=== PATIENT | male | born 1980 | race African-American/Black ===

== ENCOUNTER 2024-06-13 12:23 | Emergency (ER) | payer SELFPAY ==
[~2024-06-13] VITALS: Ht 190.5 cm; Wt 83.0 kg
[2024-06-13 12:24] VITALS: O2SAT 96
[2024-06-13 12:50] VITALS: BP 140/78; PULSE 64; RESP 16; TEMP 36.6; O2SAT 96
[2024-06-13] MEDS: SODIUM CHLORIDE 0.9% 1,000 ML IV ONE (13:15)
[2024-06-13] MEDS: LEVETIRACETAM 500MG PREMIX 100 ML IV ONE ×2 (13:15)
[2024-06-13] MEDS: LORAZEPAM 2MG/ML INJ IM ONE (13:45)
== END 2024-06-13 14:30 | disposition left against medical advice (07) ==
LOC: ER 12:23
DX: R40.4 Transient alteration of awareness (principal); Z79.899 Other long term (current) drug therapy
CPT/HCPCS: 99291; J2060; J7030